=== PATIENT | male | born 1980 | race American Indian/Alaskan Native ===

== ENCOUNTER → 2025-03-25 14:28 | Outpatient (CLI) | payer OTHER, SELFPAY ==
--- NOTE | 2025-03-25 | DI.RAD.S_ITS ---
PROCEDURE: FL JOINT INJECTION LARGE RT shoulder INDICATIONS: RIGHT SHOULDER STIFFNESS, pain COMPARISON: None. TECHNIQUE: The indications, alternatives, benefits, risks, and complications of the procedure were explained to the patient. Written informed consent was obtained and placed in the chart. The patient was placed in an appropriate position on the fluoroscopy table, and a site was chosen for percutaneous access under fluoroscopic guidance. The site was prepped and draped in a sterile fashion. Local anesthetic was administered using a 1% lidocaine solution. A 22g spinal needle was then used to access the symptomatic joint. Intra-articular location of the needle tip was confirmed by injecting a small amount of contrast, followed by steroid administration. The needle was then withdrawn, and a bandage applied to the puncture site. FINDINGS: Joint injected: Right glenohumeral Medications injected: 1 mL of 40 mg/mL Kenalog and 4 mL 0.5% Ropivacaine mixture. Patient's pain before injection: 1 out of 10. Patient's pain after injection: 1 out of 10. Complications: None. IMPRESSION: Successful fluoroscopically guided administration of steroid and anaesthetic solution into the right glenohumeral joint. Dictated by: Yo Galan M.D. on 03/25/2025 at 20:54 Approved by: Yo Galan M.D. on 03/25/2025 at 21:00
[2025-03-25] MEDS: LIDOCAINE 1% 20 ML INJ (15:31)
[2025-03-25] MEDS: TRIAMCINOLONE 40 MG/ML VIAL 20 MG INTRA-ARTI (15:32)
== END ==
LOC: RAD 14:30
PROVIDERS: Referring Provider Radiology Diagnostic Radiology; Visit Provider Radiology Diagnostic Radiology
DX: M25.611 Stiffness of right shoulder, not elsewhere classified (principal)
CPT/HCPCS: 20610; 77002; Q9967